=== PATIENT | female | born 1990 | race Caucasian/White ===

== ENCOUNTER 2017-01-03 18:10 | Emergency (ER) | payer OTHER ==
[2017-01-03 19:02] LABS: BASO % 0.2 % (0.1-1.2); EOS # 0.1 10_X3_uL (0.0-0.4); EOS % 1.9 % (0.7-5.8); GRAN # 3.3 10_X3_uL (1.6-6.1); GRAN % 63.1 % (34.0-71.1); HEMATOCRIT 35.7 % (34-45); HEMOGLOBIN 12.3 g/dL (11.2-15.7); LYMPH # 1.5 10_X3_uL (1.2-3.7); LYMPH % 28.4 % (19.3-51.7); MEAN CORPUSCULAR HEMOGLOBIN 31.8 pg (27.0-33.0); MEAN CORPUSCULAR HGB CONC 34.5 g/dL (32.0-36.0); MEAN CORPUSCULAR VOLUME 92.2 fL (79-95); MEAN PLATELET VOLUME 10.6 fl (7.5-11.5); MONO # 0.3 10_X3_uL (0.2-0.9); MONO % 6.4 % (4.7-12.5); PLATELET COUNT 155 x10_3/uL (182-369); RED BLOOD COUNT 3.87 x10_6/uL (3.9-5.2); RED CELL DISTRIBUTION WIDTH 12.5 % (11.7-14.4); WHITE BLOOD COUNT 5.2 x10_3/uL (4.0-10.0)
[2017-01-03 19:04] LABS: URINE BILIRUBIN NEGATIVE (NEGATIVE); URINE BLOOD NEGATIVE (NEGATIVE); URINE GLUCOSE (UA) NORMAL (NORMAL); URINE KETONE NEGATIVE (NEGATIVE); URINE LEUKOCYTE ESTERASE TRACE (NEGATIVE); URINE NITRATE NEGATIVE (NEGATIVE); URINE PROTEIN NEGATIVE (NEGATIVE); UROBILINOGEN NORMAL mg/dL (<1.0)
[2017-01-03 19:12] LABS: PROTHROMBIN TIME (PATIENT) 10.4 SECONDS (9.6-10.8)
[2017-01-03 19:20] LABS: ALBUMIN 4.2 gm/dL (3.4-5.0); ALKALINE PHOSPHATASE 71 U/L (50-136); ALT/SGPT 73 U/L (3.5-33.9); AST/SGOT 44 U/L (7.04-26.96); BILIRUBIN,TOTAL < 0.15 mg/dL (0.0-1.0); BLOOD UREA NITROGEN 11 mg/dL (7-18); CARBON DIOXIDE 23 mmol/L (21-32); CREATININE 0.5 mg/dL (0.6-1.3); GLUCOSE,RANDOM 118 mg/dL (70-99); POTASSIUM 3.6 mmol/L (3.5-5.1); SODIUM 142 mmol/L (136-145); TOTAL PROTEIN 6.9 gm/dL (6.4-8.2)
[2017-01-03 19:22] LABS: URINE MUCUS TRACE; URINE RBC 0-5 /[HPF] (0-2); URINE SQUAMOUS EPITHELIAL CELL 0-10 /[HPF] (NONE SEEN); URINE WBC 0-5 /[HPF] (0-5)
== END 2017-01-03 19:40 | disposition home or self-care (01) ==
LOC: ER 18:10
PROVIDERS: Internal Medicine
DX: R60.0 Localized edema (principal); R50.9 Fever, unspecified; Z86.19 Personal history of other infectious and parasitic diseases; Z87.898 Personal history of other specified conditions; F17.210 Nicotine dependence, cigarettes, uncomplicated; Z79.899 Other long term (current) drug therapy
CPT/HCPCS: 36415; 80053; 81001; 81025; 85025; 85610; 99070; 99283

== ENCOUNTER 2017-01-04 10:00 | Emergency (ER) | payer OTHER | END 2017-01-04 11:20 | disposition home or self-care (01) | LOC: ER 10:00 | DX: R60.0 Localized edema (principal); Z86.19 Personal history of other infectious and parasitic diseases; F17.210 Nicotine dependence, cigarettes, uncomplicated; Z79.899 Other long term (current) drug therapy | CPT/HCPCS: 96372; 99282-25 ==